=== PATIENT | male | born 1970 ===

== ENCOUNTER 2018-09-17 09:33 | Outpatient (CLI) | payer BC ==
[2018-09-17 11:08] LABS: Alanine Aminotransferase 19 units/L (7-56); Albumin 4.4 g/dL (3.9-5); BUN/Creatinine Ratio 12; Blood Urea Nitrogen 12 mg/dL (9-20); Calcium 9.4 mg/dL (8.4-10.2); Chol/HDL Ratio 4.83 %; HDL Cholesterol 37 mg/dL (40-59); Hemolysis Index 2; LDL Cholesterol,Direct 132 mg/dL (50-130)
[2018-09-17 11:31] LABS: Hematocrit 39.1 % (35.5-45.6); Hemoglobin 13.5 gm/dl (11.8-15.2); Mean Corpuscular HGB Conc 35 % (32-34); Mean Corpuscular Volume 94 fl (84-94); Platelet Count 273 K/mm3 (140-440); Red Blood Count 4.17 M/mm3 (3.65-5.03); Red Cell Distribution Width 13.7 % (13.2-15.2)
[2018-09-20 13:34] LABS: Vitamin D, 25-OH, D2 <4 ng/mL
== END 2018-09-17 09:34 | disposition home or self-care (01) ==
LOC: LAB 09:33
PROVIDERS: ATTEND Internal Medicine
DX: Z13.220 Encounter for screening for lipoid disorders (principal); Z13.1 Encounter for screening for diabetes mellitus; E29.1 Testicular hypofunction
CPT/HCPCS: 36415; 80053; 80061; 82306; 82607; 83036; 84443; 85027; 87806